=== PATIENT | female | born 1970 | race Caucasian/White ===

== ENCOUNTER 2018-10-23 05:30 | Emergency (ER) | payer MEDICAID ==
[~2018-10-23] VITALS: Ht 152.4 cm; Wt 81.0 kg
[2018-10-23 05:38] VITALS: BP 119/90
--- NOTE | 2018-10-23 05:38 | NUR ---
Pt presents to ED with difuse abd painand KASPER pain 8/10, x3 days. Pt states n/v x3 days. A&Ox4. KASPER pain. Deneis ALOC, no change in vision. X4 quadrant bowel sounds present. Hx IBS, Cycstitis, and Hypothyroid dis. Positioned in bed with vss. Er MD valenzuela.Continue to monitor.
--- NOTE | 2018-10-23 05:38 | NUR ---
TO BED # 4 AMBULATORY, REPORT GIVEN TO MELI BLACK
[2018-10-23] MEDS ORDERED: KETOROLAC 30 MG/ML VIAL IVP ONE (07:15)
[2018-10-23] MEDS ORDERED: NACL 0.9% 1,000 ML IV ONE (07:15)
[2018-10-23] MEDS ORDERED: ONDANSETRON 4 MG/2 ML VIAL IVP ONE (07:15)
[2018-10-23 08:29] VITALS: BP 143/77
--- NOTE | 2018-10-23 08:30 | NUR ---
Patient discharged with v/s stable. Written and verbal after care instructions given and explained. Patient alert, oriented and verbalized understanding of instructions. Ambulatory with steady gait. All questions addressed prior to discharge. ID band removed. Patient advised to follow up with PMD. Rx of PREDNISONE, ZOFRAN, AZITHROMYCIN, MOTRIN, CIPRO given. Patient educated on indication of medication including possible reaction and side effects. Opportunity to ask questions provided and answered.
--- NOTE | 2018-10-24 10:20 | NUR ---
Late entry. Confirmed with RN that 0.9NS 1000 ml IV completed at 0850.
== END 2018-10-23 08:30 | disposition home or self-care (01) ==
LOC: MED 05:30
DX: K58.9 Irritable bowel syndrome, unspecified (principal); R11.2 Nausea with vomiting, unspecified; R50.9 Fever, unspecified; R42 Dizziness and giddiness; E07.9 Disorder of thyroid, unspecified; Z90.710 Acquired absence of both cervix and uterus
CPT/HCPCS: 81025; 96361; 96374; 96375; 99283; J1885; J7030